=== PATIENT | male | born 1950 | race Caucasian/White ===

== ENCOUNTER 2023-06-15 11:31 | Outpatient (CLI) | payer MEDICARE, SELFPAY ==
--- NOTE | 2023-06-15 11:43 | CT_ITS ---
WS: [id number] CT NECK WITH CONTRAST HISTORY: Dysphagia, hoarseness TECHNIQUE: Contiguous 2 mm axial images are performed through the neck with intravenous contrast. Sag ittal and coronal reformats are also submitted. All CT scans at [facility] use at least one o f these dose optimization techniques: automated exposure control; mA and/or kV adjustment per patient size (includes targeted exams where dose is matched to clinical indication); or iterative reconstruc tion. CONTRAST: CONTRAST: Omnipaque 350; 100 mL IV. DLP: 227.99 mGy.cm COMPARISON: None available. Nasopharynx, oropharynx, hypopharynx and larynx are unremarkable. No soft tissue masses or abnormal e nhancement. Torus tubarius and fossa of Rosenmuller and parapharyngeal fat are normal. Small bilateral cervical chain lymph nodes. No adenopathy. Thyroid gland and salivary glands are normally enhancing with no masses. Advanced degenerative cervical spondylitic disease. Visualized portions of the skull base demonstrate no abnormalities. Orbits and globes are within norm al limits. No soft tissue masses. Visualized paranasal sinuses and mastoid air cells are normal. Duplicated LEFT SVC. Normal variant. There also may be a right-sided arch. Only a small portion of th e aortic arch is imaged on this exam. IMPRESSION: 1. No laryngeal mass identified. 2. No significant cervical chain lymphadenopathy. 3. Persistent LEFT SVC. Suspect there also may be a right-sided arch or variant abnormality at the g reat vessel level. Only a small portion of the aorta and pulmonary artery visualized on this exam. Fo r further evaluation CT angiogram of the chest can be obtained.
[2023-06-15 12:11] LABS: Blood Urea Nitrogen 21 mg/dL (8-23)
[2023-06-15] MEDS: iohexol 350 mg/mL 500 mL Btl (per mL) IV (12:24)
== END 2023-06-15 11:32 | disposition home or self-care (01) ==
LOC: RAD 11:33
PROVIDERS: Family Provider Family Medicine; PCP Family Medicine; Visit Provider Nurse Practitioner
DX: R13.10 Dysphagia, unspecified (principal); R49.0 Dysphonia; Q26.1 Persistent left superior vena cava
CPT/HCPCS: 70491; 82565; 84520; Q9967

== ENCOUNTER → 2023-10-11 10:31 | Outpatient (BNVA) | payer MEDICARE, SELFPAY | PROVIDERS: Family Provider Family Medicine; PCP Family Medicine; Visit Provider Family Medicine | DX: I10 Essential (primary) hypertension (principal); K04.7 Periapical abscess without sinus; Z12.5 Encounter for screening for malignant neoplasm of prostate; J04.0 Acute laryngitis; E55.9 Vitamin D deficiency, unspecified; K21.9 Gastro-esophageal reflux disease without esophagitis | CPT/HCPCS: 80053; 80061; 82306; 84439; 84443; 85025; 86140; G0103 ==

== ENCOUNTER → 2023-11-14 13:17 | Outpatient (BNVA) | payer MEDICARE, SELFPAY | PROVIDERS: Family Provider Family Medicine; PCP Family Medicine; Referring Provider Family Medicine; Visit Provider Surgery | DX: Z12.11 Encounter for screening for malignant neoplasm of colon (principal); R03.0 Elevated blood-pressure reading, without diagnosis of hypertension | CPT/HCPCS: 99203 ==

== ENCOUNTER 2023-11-28 10:17 | Outpatient (CLI) | payer MEDICARE, SELFPAY ==
--- NOTE | 2023-11-28 10:29 | CT_ITS ---
WS: [id number] CT chest w con* [id number] REASON FOR EXAM: ACUTE LARYNGITIS IV CONTRAST ADMINISTERED: 100 mL of Omnipaque 350@3 mL/s TOTAL EXAM DLP: 235.[address] scans at [facility] use at least one of these dose optimization techniques: automat ed exposure control; mA and/or kV adjustment per patient size (includes targeted exams where dose is matched to clinical indication); or iterative reconstruction. FINDINGS: No dextrocardia. Right-sided aortic arch from normally positioned left ventricle. The right-sided arch gives origin to the left carotid and innominate arteries and extends inferiorly into the left side of the mediastinu m. This portion of the aorta demonstrates a fusiform aneurysmal dilatation of 3.5 cm as it extends in feriorly in the mediastinum to a fixed narrowing with calcification which appears to represent a form of coarctation . The left subclavian artery originates from this portion of the dilated aorta and a lso demonstrates aneurysmal dilatation to 2 cm. The aorta extends posteriorly from coarctation with mild aneurysmal dilatation to 3.2 cm, before proceeding inferiorly as the descending thoracic aorta. 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 It courses around the left atrium to enter the right atrium. No lung nodule, lung mass, or mediastinal or hilar adenopathy is identified. No significant pleural a bnormality. Mild degenerative spondylosis in the thoracic spine. 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
[2023-11-28] MEDS: iohexol 350 mg/mL 500 mL Btl (per mL) IV (11:02)
== END 2023-11-28 10:18 | disposition home or self-care (01) ==
LOC: RAD 10:18
PROVIDERS: Family Provider Family Medicine; PCP Family Medicine; Visit Provider Specialist
DX: J04.0 Acute laryngitis (principal); I71.22 Aneurysm of the aortic arch, without rupture; Q26.1 Persistent left superior vena cava
CPT/HCPCS: 71260; Q9967

== ENCOUNTER 2023-12-27 06:47 | Outpatient (CLI) | payer MEDICARE, SELFPAY ==
--- NOTE | 2023-12-27 07:07 | MR_ITS ---
WS: [id number] MRI NECK WITH AND WITHOUT CONTRAST. COMPARISON: Neck CT 06/15/2023 Multiplanar, multisequence imaging is performed with contrast. MultiHance 11 mL IV. Patient moved and swallowed throughout the entire examination. No signal abnormality or mass is noted at the tongue base or through the larynx or epiglottis. This e valuation is insufficient to exclude a mass particularly in the region of the vocal cords. There is s ignificant motion. There is mild thickening of the vocal cords but I believe this is probably due to motion. Very slight greater thickening and enhancement of the RIGHT vocal cord. Parapharyngeal fat ap pears normal. No cervical chain adenopathy. Straightening of the normal cervical lordosis with disc and osteophyte disease encroaching upon the v entral thecal sac, most significant at C3-4 and C4-5. MR/MR orbit face neck wo/w* [id number] IMPRESSION: 1. This study is significantly compromised by motion throughout the entire exa mination. 2. Mild asymmetry enhancement of the RIGHT vocal cord. There is motion artifac t through this region and this all may be secondary to motion. Direct visualiza tion should be performed as a study is insufficient to exclude a mass. 3. No cervical chain adenopathy.
--- NOTE | 2023-12-27 07:07 | MR_ITS ---
WS: [id number] MRI BRAIN WITH AND WITHOUT CONTRAST HISTORY: acute laryngitis COMPARISON: None available. TECHNIQUE: Multiplanar imaging performed through the brain with MultiHance 11 ml's IV. Acute lacunar infarct in the LEFT centrum semiovale. Diffusion imaging is positive and there is low s ignal on the corresponding ADC map. No additional diffusion abnormality. No hemorrhage. There is othe rwise mild small vessel disease which is chronic in a periventricular distribution. No prior infarct. No hemorrhage. Ventricles and extra-axial spaces are normal. Clivus and pituitary gland are normal. Visualized posterior fossa and brainstem are also normal. Postcontrast images are negative for masses or vascular malformations. Dural venous sinuses are normal. Paranasal sinuses: Well aerated with no significant disease. Mastoid air cells: Normal. Calvarium and scalp: Normal. MR/MR head wo/w con [id number] IMPRESSION: 1. Acute LEFT centrum semiovale lacunar infarct. No hemorrhage. 2. Otherwise mild atrophy and small vessel ischemic disease is chronic. 3. No enhancing mass.
[2023-12-27] MEDS: gadobenate dimeglumine 20 mL vial IV (08:27)
== END 2023-12-27 06:48 | disposition home or self-care (01) ==
LOC: RAD 06:47
PROVIDERS: Family Provider Family Medicine; PCP Family Medicine; Visit Provider Specialist
DX: J04.0 Acute laryngitis (principal); I63.81 Other cerebral infarction due to occlusion or stenosis of small artery; I67.82 Cerebral ischemia
CPT/HCPCS: 70543; 70553; A9577

== ENCOUNTER 2024-02-14 06:29 | Day surgery (SDC) | payer MEDICARE, SELFPAY ==
--- NOTE | 2024-02-14 06:11 | W.PM.OPSFHP ---
Same Day Surgery H&P Indication for Procedure/HPI DATE OF PROCEDURE: February 14, 2024 CHIEF COMPLAINT/INDICATIONFOR SURGICAL PROCEDURE: need for screening colonoscopy PREOP DIAGNOSIS: need for screening colonoscopy PLANNED PROCEDURE: Operation Date: 02/14/24 08:20 Proposed Procedures p Colonoscopy - 40116 , G0121 , Z12.11(Not Applicable) - Joni Wells MD Medications/Allergies* Allergies/Adverse Reactions Allergy/AdvReac Type Severity Reaction Status Date / Time Penicillins Allergy ALGY-Hives Verified 02/11/24 09:40 Pertinent History/Comorbid Conditions* Family History (Updated 10/11/23 @ 09:42 by Samantha Tyler LPN) Father Diabetes Father Stroke Father Social History Smoking and tobacco/nicotine status: never used tobacco/nicotine Second hand smoke exposure: No Alcohol intake: never Substance/Drug Use: never Pertinent Exam Findings alert, oriented x 3 and clear to auscultation bilaterally Recommendations Surgery/Procedure today Coding Level of Care Code Acute Code for Chg Berta
[2024-02-14 06:44] VITALS: BMI 22.3
[2024-02-14 06:49] VITALS: BP 157/86; PULSE 74; RESP 16; TEMP 36.6; O2SAT 97
[2024-02-14] MEDS: sodium chloride 0.9% 1,000 ML 30 ML IV (06:54)
--- NOTE | 2024-02-14 07:24 | ANES.PREANE2 ---
Pre-Anesthetic Assessment Height/Weight: Height 5 ft 2 in Weight 122 lb Temp Pulse Resp BP Pulse Ox O2 Del Method 97.9 F 74 16 157/86 97 Room Air 02/14/24 06:49 02/14/24 06:49 02/14/24 06:49 02/14/24 06:49 02/14/24 06:49 02/14/24 06:49 Preop Diagnosis: need for screening colonoscopy Operation Date: 02/14/24 08:20 Proposed Procedures p Colonoscopy - 08085 , G0121 , Z12.11(Not Applicable) - Joni Wells MD Was Beta Tan taken within 24 hours: N/A Was Clonidine taken within 24 hours: N/A Last intake: Intake Last Liquid Date 02/13/24 Last Liquid Time 20:00 Last Solid Date 02/12/24 Last Solid Time 18:00 Social No alcohol and No tobacco Exam alert, oriented x 3, clear to auscultation bilaterally and regular rate & rhythm Airway Submandibular: within normal limits Cervical ROM: within normal limits Mallampati: Class II Dentition: other (Multiple missing teeth) Anesthetic Plan ASA status: 3 Anesthesia: MAC Other: No prior issues with anesthesia in the past Nothing to eat since yesterday Recently diagnosed hypertension on amlodipine and valsartan 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 Calvo of ENT. He states that it does cause him some shortness of breath with exertion but METs are greater than 4. No oxygen use. Plan for MAC anesthesia Medications/Allergies Home Medications Medication Instructions Recorded Confirmed Last Taken Type amlodipine 5 mg tablet 5 mg PO DAILY #90 tabs 01/10/24 02/12/24 02/12/24 Rx valsartan 320 mg tablet 320 mg PO DAILY #90 tabs 01/10/24 02/12/24 02/12/24 Rx Allergies Allergy/AdvReac Type Severity Reaction Status Date / Time Penicillins Allergy ALGY-Hives Verified 02/11/24 09:40 Current Medications Generic Name Dose Route Start Last Admin Trade Name Freq PRN Reason Stop Dose Admin Sodium Chloride 1,000 mls @ 30 mls/hr 02/14/24 06:45 02/14/24 06:54 Sodium Chloride 0.9% IV 30 mls/hr .Q24H SHONA Administration PFSH Anesthesia Family History Father Diabetes Stroke Social History Smoking and tobacco/nicotine status: never used tobacco/nicotine Second hand smoke exposure: No Alcohol intake: never Substance/Drug Use: never Data Anesthesia Cardiac Studies: No Data to Display
[2024-02-14 09:28] VITALS: BP 106/68; PULSE 64; RESP 20; TEMP 36.4; O2SAT 100
[2024-02-14 09:33] VITALS: BP 107/65; PULSE 64; RESP 20; O2SAT 99
[2024-02-14 09:43] VITALS: BP 117/72; PULSE 76; RESP 20; O2SAT 100
--- NOTE | 2024-02-14 10:02 | ANE.PACU2 ---
Inpatient post-anesthesia follow up: Airway intact: Yes Vital signs: Temperature 97.5 F Pulse Rate 76 Respiratory Rate 20 Blood Pressure 117/72 Pulse Oximetry 100 Oxygen Delivery Me thod Room Air Oxygen Flow Rate Fraction of Inspir ed Oxygen Hydration adequate: Yes Nausea and vomiting: No Pain level: 1 Mental status: Baseline
[2024-02-20 07:06] LABS: Mismatch Repari Proteins-IHC See Report
== END 2024-02-14 10:02 | disposition home or self-care (01) ==
PROVIDERS: PCP Family Medicine; Visit Provider Surgery
PROC: 0DJD8ZZ Inspection of Lower Intestinal Tract, Via Natural or Artificial Opening Endoscopic (ICD-10-PCS; CPT 45378; principal; 2024-02-14 08:20)
DX: Z12.11 Encounter for screening for malignant neoplasm of colon (principal); C18.7 Malignant neoplasm of sigmoid colon; D12.3 Benign neoplasm of transverse colon; K63.5 Polyp of colon; I10 Essential (primary) hypertension; K62.89 Other specified diseases of anus and rectum; Z88.0 Allergy status to penicillin; Z79.899 Other long term (current) drug therapy
CPT/HCPCS: 45380; 45381; 45385; 88305; 88341; 88342; J2704; J7030

== ENCOUNTER 2024-02-20 06:00 | Outpatient (CLI) | payer MEDICARE, SELFPAY | END 2024-02-20 17:00 | disposition home or self-care (01) | LOC: RAD 03-05 13:06 | PROVIDERS: PCP Family Medicine; Visit Provider Surgery | DX: C18.9 Malignant neoplasm of colon, unspecified (principal) | CPT/HCPCS: 99214 ==

== ENCOUNTER → 2024-02-25 09:54 | Outpatient (BNVA) | payer MEDICARE, SELFPAY | PROVIDERS: PCP Family Medicine; Visit Provider Family Medicine | DX: C18.9 Malignant neoplasm of colon, unspecified (principal) | CPT/HCPCS: 80048; 82378; 85025 ==

== ENCOUNTER 2024-02-27 10:49 | Outpatient (CLI) | payer MEDICARE, SELFPAY ==
--- NOTE | 2024-02-27 12:00 | CTR_ITS ---
PROCEDURE INFORMATION: Exam: CT Chest Without and With Contrast; Diagnostic Exam date and time: 02/27/2024 12:25 PM Age: 73 years old Clinical indication: Condition or disease; Cancer and other: Malignant neoplasm of colon; Additional info: Colon cancer TECHNIQUE: Imaging protocol: Diagnostic computed tomography of the chest without and with contrast. Radiation optimization: All CT scans at this facility use at least one of these dose optimization techniques: automated exposure control; mA and/or kV adjustment per patient size (includes targeted exams where dose is matched to clinical indication); or iterative reconstruction. Contrast material: OMNI 350; Contrast volume: 100 ml; Contrast route: INTRAVENOUS (IV); COMPARISON: CT chest w con* [id number] 11/28/2023 10:54 AM RADIATION DOSE METRICS: Total DLP (mGy-cm): 670.41 FINDINGS: Lungs: The previously described cluster of tiny nodules in the posterior portion of the right upper lobe has resolved, suggestive of prior infectious/inflammatory etiology. Unchanged 6 x 6 mm solitary ground-glass focus in the superior portion of the right lower lobe. The lungs are otherwise clear. Pleural spaces: No pneumothorax or pleural effusion. Heart: Heart size upper limits of normal. No pericardial fluid. Moderate coronary vessel atherosclerosis, with possible stenting. Lymph nodes: No mediastinal or hilar lymphadenopathy. Vasculature: No large or central pulmonary embolus. Right-sided aortic arch gives rise to the right brachiocephalic and left carotid artery. Aneurysmal dilatation of the aortic arch, measuring up to 3.6 cm in diameter, with adjacent segments measuring up to 1.9 cm proximally and distally. Unchanged finding. Immediately distal to this region of aneurysmal dilatation, there is apparent moderate coarctation at the origin of the descending aorta. 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 Bones/joints: Unremarkable. No acute fracture. Soft tissues: Unremarkable. PROCEDURE INFORMATION: Exam: CT Abdomen And Pelvis Without And With Contrast Exam date and time: 02/27/2024 12:25 PM Age: 73 years old Clinical indication: Condition or disease; Cancer and other: Malignant neoplasm of colon; Additional info: Colon cancer TECHNIQUE: Imaging protocol: Computed tomography of the abdomen and pelvis without and with contrast. Radiation optimization: All CT scans at this facility use at least one of these dose optimization techniques: automated exposure control; mA and/or kV adjustment per patient size (includes targeted exams where dose is matched to clinical indication); or iterative reconstruction. Contrast material: OMNI 350; Contrast volume: 100 ml; Contrast route: INTRAVENOUS (IV); COMPARISON: CT chest w con* [id number] 11/28/2023 10:54 AM RADIATION DOSE METRICS: Total DLP (mGy-cm): 670.41 FINDINGS: Lungs: Lung bases are clear as visualized. Diaphragm: Small hiatal hernia. Liver: Normal. No mass. Gallbladder and biliary ducts: Normal. No calcified stones. No ductal dilation. Pancreas: Normal. No ductal dilation. Spleen: Normal. No splenomegaly. Adrenal glands: Normal. No mass. Kidneys and ureters: Normal. No hydronephrosis. Stomach and bowel: No bowel mass or obstruction. Note made of moderate thickening of a short segment of the sigmoid colon (approximately 8 cm in length). Nonspecific finding. May indicate infectious, inflammatory, or posttreatment thickening versus under distension. Administered enteric contrast transits up to the rectum. Moderate colonic diverticulosis. Appendix: No evidence of appendicitis. Intraperitoneal space: No distinct peritoneal metastatic disease. No ascites, pneumoperitoneum, or abscess. Vasculature: Unremarkable. No abdominal aortic aneurysm. Lymph nodes: Unremarkable. No enlarged lymph nodes. Urinary bladder: Mild circumferential thickening of the bladder, probably due to a component of chronic outlet obstruction. Reproductive: Prostatomegaly. Bones/joints: Mild heterogeneity in the upper lumbar vertebrae. Distinct worrisome lytic or blastic osseous lesion. Soft tissues: Small bowel containing left inguinal hernia. CT/CT abdpel wo/w [id number] IMPRESSION: 1. The previously described cluster of tiny nodules in the posterior portion of the right upper lobe has resolved, suggestive of prior infectious/inflammatory etiology. 2. Congenital abnormal thoracic aorta with right-sided arch and aneurysmal dilatation of the central arch, unchanged. 3. Unchanged 6 x 6 mm solitary ground-glass focus in the superior portion of the right lower lobe. May be infectious or inflammatory. However, given history of malignancy, may also represent metastatic disease. Attention to be paid on future. IMPRESSION: No bowel mass or obstruction. Note made of moderate thickening of a short segment of the sigmoid colon (approximately 8 cm in length). Nonspecific finding. May indicate infectious, inflammatory, or posttreatment thickening versus underdistension.
[2024-02-27] MEDS: iohexol 350 mg/mL 500 mL Btl (per mL) IV (12:51)
[2024-02-27] MEDS: iohexol 350 mg/mL 500 mL Btl (per mL) PO (12:53)
== END 2024-02-27 10:50 | disposition home or self-care (01) ==
LOC: RAD 10:50
PROVIDERS: PCP Family Medicine; Visit Provider Surgery
DX: C18.9 Malignant neoplasm of colon, unspecified (principal)
CPT/HCPCS: 71260; 74178

== ENCOUNTER → 2024-03-19 11:21 | Outpatient (BNVA) | payer MEDICARE, SELFPAY | PROVIDERS: PCP Family Medicine; Visit Provider Surgery | DX: Z12.11 Encounter for screening for malignant neoplasm of colon (principal) | CPT/HCPCS: 99024; 99214 ==

== ENCOUNTER 2024-04-30 13:02 | Oncology outpatient (recurring) (ONCR) | payer MEDICARE, SELFPAY | END 2024-05-27 23:59 | disposition home or self-care (01) | PROVIDERS: PCP Family Medicine; Visit Provider Internal Medicine Medical Oncology | DX: C18.7 Malignant neoplasm of sigmoid colon (principal); R91.1 Solitary pulmonary nodule | CPT/HCPCS: 99204 ==

== ENCOUNTER → 2024-11-13 08:40 | Outpatient (BNVA) | payer MEDICARE, SELFPAY | PROVIDERS: PCP Family Medicine; Visit Provider Family Medicine | DX: I10 Essential (primary) hypertension (principal); Z12.5 Encounter for screening for malignant neoplasm of prostate; Z12.11 Encounter for screening for malignant neoplasm of colon; U07.1 COVID-19 | CPT/HCPCS: 80053; 80061; 84443; 85027; G0103 ==

== ENCOUNTER → 2025-05-05 12:25 | Outpatient (BNVA) | payer MEDICARE, SELFPAY | PROVIDERS: PCP Family Medicine; Visit Provider Surgery | DX: Z12.11 Encounter for screening for malignant neoplasm of colon (principal) | CPT/HCPCS: 99024; 99214 ==

== ENCOUNTER 2025-05-06 16:15 | Oncology outpatient (recurring) (ONCR) | payer MEDICARE, SELFPAY ==
[2025-04-29 12:54] LABS: Hematocrit 40.9 % (37-53); Hemoglobin 14.20 g/dL (11.27-16.99); Mean Corpuscular HGB Conc 34.7 g/dL (30-55); Mean Corpuscular Hemoglobin 30.5 pg (27-33); Mean Corpuscular Volume 88.0 fl (82-101); Nucleated Red Blood Cells % 0 %; Platelet Count 215 10^3/cmm (157-399); Red Blood Count 4.65 10^6/uL (3.85-5.65); White Blood Count 9.01 10^3/uL (3.29-11.43)
[2025-04-29 13:19] LABS: Alanine Aminotransferase 20 U/L (0-41); Albumin Level 4.3 g/dL (3.5-5.2); Alkaline Phosphatase 67 U/L (40-130); Anion Gap 15.3 (5-19); Aspartate Amino Transferase 29 U/L (0-40); Blood Urea Nitrogen 18 mg/dL (8-23); Calcium 9.4 mg/dL (8.5-10.5); Carbon Dioxide 27 mmol/L (22-29); Chloride 103 mmol/L (98-107); Globulin 3.3 g/dL (1.3-4.6); Glucose 97 mg/dL (65-115); Osmolality Calculated 294 mOsm/kg (285-295); Potassium 4.3 mmol/L (3.5-5.1); Sodium 141 mmol/L (136-145); Total Protein 7.6 g/dL (6.6-8.7)
[2025-04-29 15:12] LABS: Carcinoembryonic Antigen 5.6 ng/mL (0.0-4.7)
[2025-05-06] MEDS: iohexol 350 mg/mL 500 mL Btl (per mL) PO (14:41)
[2025-05-06] MEDS: iohexol 350 mg/mL 500 mL Btl (per mL) IV (15:20)
--- NOTE | 2025-05-06 16:15 | CTR_ITS ---
PROCEDURE INFORMATION: Exam: CT Chest With Contrast; Diagnostic Exam date and time: 05/06/2025 3:12 PM Age: 75 years old Clinical indication: Condition or disease; Other: Colon cancer; Prior surgery; Surgery date: 6+ months; Surgery type: Colon, appy; Additional info: Surveillance TECHNIQUE: Imaging protocol: Diagnostic computed tomography of the chest with contrast. Radiation optimization: All CT scans at this facility use at least one of these dose optimization techniques: automated exposure control; mA and/or kV adjustment per patient size (includes targeted exams where dose is matched to clinical indication); or iterative reconstruction. Contrast material: OMNI 350; Contrast volume: 100 ml; Contrast route: INTRAVENOUS (IV); COMPARISON: CT abdpel wo/w [id number] 02/27/2024 12:25 PM RADIATION DOSE METRICS: Total DLP (mGy-cm): 485.33 FINDINGS: Lungs: A small calcified granuloma in the right lower lobe. In the area of previously seen ground-glass opacity superior segment right lower lobe is increased ground-glass density paralleling the pleura. This may represent some peripheral dependent atelectasis. Inflammatory process can not be entirely excluded. Unlikely neoplastic. Some mild linear atelectasis seen posterior gutters of both lungs. Pleural spaces: Unremarkable. No pneumothorax. No pleural effusion. Heart: Heart size upper limits. Coronary artery calcification. Lymph nodes: Stable small mediastinal lymph nodes. Vasculature: Aneurysmal dilatation of the distal aortic arch again seen measuring proximally 3.9 cm in diameter. At the distal end of the this is a focal area of the coarctation. Normal diameter of the ascending thoracic aorta and proximal aortic arch and descending thoracic aorta. Again seen is transposition of the left brachiocephalic vein draining into the right atrium. Main pulmonary artery normal diameter. No demonstrable pulmonary emboli. Bones/joints: Degenerative changes and Schmorl's nodes deformities. No acute fracture. Soft tissues: Unremarkable. PROCEDURE INFORMATION: Exam: CT Abdomen And Pelvis With Contrast Exam date and time: 05/06/2025 3:12 PM Age: 75 years old Clinical indication: Condition or disease; Other: Colon cancer; Prior surgery; Surgery date: 6+ months; Surgery type: Colon, appy; Additional info: Surveillance TECHNIQUE: Imaging protocol: Computed tomography of the abdomen and pelvis with contrast. Radiation optimization: All CT scans at this facility use at least one of these dose optimization techniques: automated exposure control; mA and/or kV adjustment per patient size (includes targeted exams where dose is matched to clinical indication); or iterative reconstruction. Contrast material: OMNI 350; Contrast volume: 100 ml; Contrast route: INTRAVENOUS (IV); COMPARISON: CT ch [place] wo/w [id number] 02/27/2024 12:25 PM RADIATION DOSE METRICS: Total DLP (mGy-cm): 485.33 FINDINGS: Liver: Round 6.8 mm hypodense lesion medial lower right lobe liver slice image 24 series 5. On previous study of 02/27/2024 this showed a area of the increased enhancement. On study of 07/2023 this showed decreased density and some enhancement. It appears smaller than on 11/28/2023. This would indicate lesion probably benign. Gallbladder and biliary ducts: Normal. No calcified stones. No ductal dilation. Pancreas: Normal. No ductal dilation. Spleen: Normal. No splenomegaly. Adrenal glands: Normal. No mass. Kidneys and ureters: Kidneys unremarkable. Extrarenal pelvis on the right. Slightly more marked dilatation of the left renal pelvis and left ureter to the level of the urinary bladder to the right. Appears to be wall thickening urinary bladder which may cause this. Stomach and bowel: Moderate-sized hiatal hernia again seen. Homogeneous circumferential wall thickening of the antrum measuring up to 8.7 mm convexities. No evidence of significant obstruction. No enhancement. Diverticulum 2nd portion of the duodenal. Small bowel otherwise unremarkable. Large amount of fecal material in the cecum, ascending colon, transverse colon and descending colon. Previous partial resection of the sigmoid colon. Mild decrease in caliber with respect to the colon proximal and distal to this point but no significant narrowing or obstruction. Appendix: No evidence of appendicitis. Intraperitoneal space: Unremarkable. No free air. No significant fluid collection. Vasculature: Mild atherosclerosis. No abdominal aortic aneurysm. Lymph nodes: Unremarkable. No enlarged lymph nodes. Urinary bladder: Borderline-mild wall thickening of the lateral and anterior higgins of the urinary bladder measuring up to 4.8 mm. Appearance of the thickening of the posterior wall. There is also moderate prostatic with some lobulation projecting into the urinary bladder. Nonemergent urology consult recommended, especially in view of the mild dilatation of the left ureter. Reproductive: Moderate enlargement of the prostate projecting into urinary bladder. Bones/joints: Degenerative bony and disc changes. Schmorl's nodes deformities. Soft tissues: Left inguinal hernia containing a loop of small bowel without obstruction. CT/CT chest abdpel w/*[id number] IMPRESSION: 1. Ground glass opacity posterior superior segment right lower lobe appears associated with faint ground-glass opacity paralleling the posterior pleural surface. This may represent some dependent peripheral atelectasis. Can not rule out inflammatory process. Unlikely malignancy. However six-month follow-up CT recommended. 2. Heart size upper limits. Coronary artery calcification. 3. Stable aneurysmal dilatation distal aortic arch with focal area of the coarctation. Again seen transposition left brachiocephalic artery inserting into the right atrium. IMPRESSION: 1. Round 6 8 mm hypodense lesion medial right lower lobe of the liver. Previous studies that showed enhancement and with slightly larger. Decrease in size would indicate probable benign lesion. 2. Mild dilatation of the left ureter to the left UV junction. Wall thickening of the urinary bladder may account for this. Also moderate enlargement of the prostate projecting into the urinary bladder. Follow-up urology consult on a nonemergent basis recommended. 3. Moderate-sized hiatal hernia again seen. 4. Symmetric homogeneous mild wall thickening of the antrum of the stomach without significant obstruction . Wall thickness of the antrum can be variable thickness. Clinical correlation suggested. If clinically indicated endoscopy recommended. 5. Previous partial resection of sigmoid colon. Anastomosis appears unremarkable. 6. Large amount of fecal material in the cecum, ascending, transverse, and descending colon without obstruction. Correlate for symptoms of constipation. 7. Left inguinal hernia containing loop of small bowel without obstruction.
== END 2025-05-27 23:59 | disposition home or self-care (01) ==
LOC: RAD 05-07 00:01 → ONCMED 05-07 09:58
PROVIDERS: Internal Medicine Medical Oncology; PCP Family Medicine; Visit Provider Internal Medicine
DX: C18.7 Malignant neoplasm of sigmoid colon; K76.89 Other specified diseases of liver; N28.82 Megaloureter; N40.0 Benign prostatic hyperplasia without lower urinary tract symptoms; K44.9 Diaphragmatic hernia without obstruction or gangrene; R93.3 Abnormal findings on diagnostic imaging of other parts of digestive tract; Z98.890 Other specified postprocedural states; R93.89 Abnormal findings on diagnostic imaging of other specified body structures; K40.90 Unilateral inguinal hernia, without obstruction or gangrene, not specified as recurrent; J84.10 Pulmonary fibrosis, unspecified; R91.8 Other nonspecific abnormal finding of lung field; J98.11 Atelectasis; I25.10 Atherosclerotic heart disease of native coronary artery without angina pectoris; R59.0 Localized enlarged lymph nodes; I77.810 Thoracic aortic ectasia; R93.7 Abnormal findings on diagnostic imaging of other parts of musculoskeletal system; N28.89 Other specified disorders of kidney and ureter; K57.10 Diverticulosis of small intestine without perforation or abscess without bleeding; I70.0 Atherosclerosis of aorta; Z53.9 Procedure and treatment not carried out, unspecified reason
CPT/HCPCS: 36415; 71260; 74177; 80053; 82378; 85025; 99214

== ENCOUNTER 2025-05-27 08:11 | Day surgery (SDC) | payer MEDICARE, SELFPAY ==
--- NOTE | 2025-05-25 08:58 | PC.NURSE ---
This RN attempted to do TPO, no answer, left vm to call back at earliest convenience.
[2025-05-27 08:26] VITALS: BP 161/100; PULSE 77; RESP 18; TEMP 36.5; O2SAT 99; BMI 22.1
--- NOTE | 2025-05-27 10:07 | W.PM.OPSUD ---
Surgery/Procedure H&P Update DATE OF PROCEDURE: May 27, 2025 DATE H&P PERFORMED: 05/05/25 H&P UPDATE INFORMATION: I have reviewed H&P completed within last 30 days, I have examined patient prior to procedure, No changes to prior documentation, H&P is in [facility] EMR on date indicated and Risks and benefits of the procedure reviewed PLANNED PROCEDURE: Operation Date: 05/27/25 11:05 Proposed Procedures p Colonoscopy 40286 G0121 Z12.11(Not Applicable) - Joni Wells MD
--- NOTE | 2025-05-27 10:13 | ANES.PREANE2 ---
Pre-Anesthetic Assessment Height/Weight: Height 1.6 m Weight 56.699 kg Temp Pulse Resp BP Pulse Ox O2 Del Method 97.7 F 77 18 161/100 99 Room Air 05/27/25 08:26 05/27/25 08:26 05/27/25 08:26 05/27/25 08:26 05/27/25 08:26 05/27/25 08:26 Operation Date: 05/27/25 11:05 Proposed Procedures p Colonoscopy [id number] Z12.11(Not Applicable) - Joni Wells MD Familial anesthetic complications: none Was Beta Tna taken within 24 hours: N/A Was Clonidine taken within 24 hours: N/A Last intake: Intake Last Liquid Date 05/26/25 Last Liquid Time 22:30 Last Solid Date 05/25/25 Last Solid Time 20:00 Social No alcohol and No tobacco Exam alert and oriented x 3 Airway Submandibular: within normal limits Cervical ROM: within normal limits Mallampati: Class I Dentition: chipped (poor dentition) History/ROS No significant history except as noted Pulmonary paralyzed vocal cord, food sometimes gets stuck a little. lung nodules on CT per chart CV/HEM None reported sigmoidectomy at [facility] 2023 Hepatic None reported GI Gastroesophageal Reflux Disease (controlled) Metabolic None reported Musc/skel None reported Neuropsych None reported Anesthetic Plan ASA status: 3 Anesthesia: Anesthesia Evaluation and MAC Risk of > 500 ml blood loss (7ml/kg in children): No Medications/Allergies Home Medications ?Medication ?Instructions ?Recorded ?Confirmed ?Last Taken ?Type latanoprost 0.005 % eye drops 1 drp ophthalmic (eye) BEDTIME 04/30/24 05/27/25 05/26/25 History albuterol sulfate 90 mcg/actuation 1 inh inhalation QID PRN shortness 08/06/24 05/27/25 05/26/25 Rx aerosol inhaler of breath or wheezing #8.5 grams cholecalciferol (vitamin D3) 10 10 mcg PO DAILY 08/13/24 05/27/25 05/26/25 History mcg (400 unit) capsule sucralfate 1 gram tablet (Carafate) 1 g PO BID #90 tabs 05/13/25 05/27/25 05/26/25 Rx amlodipine 5 mg tablet 5 mg PO DAILY 05/25/25 05/27/25 05/27/25 History pantoprazole 40 mg tablet,delayed 40 mg PO DAILY 05/25/25 05/27/25 05/26/25 History release valsartan 320 mg tablet 320 mg PO DAILY 05/25/25 05/27/25 05/26/25 History Allergies Allergy/AdvReac Type Severity Reaction Status Date / Time Penicillins Allergy ALGY-Hives Verified 05/05/25 12:53 Current Medications Generic Name Dose Route Start Last Admin Trade Name Freq PRN Reason Stop Dose Admin Sodium Chloride 1,000 mls @ 15 mls/hr 05/27/25 08:19 05/27/25 08:38 Sodium Chloride 0.9% IV 05/28/25 08:18 15 mls/hr .Q24H PRN Administration COLONOSCOPY FLUIDS PFSH Anesthesia Family History Father Diabetes Stroke Social History Smoking and tobacco/nicotine status: never used tobacco/nicotine Second hand smoke exposure: No Alcohol intake: never Substance/Drug Use: never
[2025-05-27 11:21] VITALS: BP 120/74; PULSE 65; RESP 18; TEMP 36.7; O2SAT 97
[2025-05-27 11:40] VITALS: BP 141/88; PULSE 70; RESP 17; O2SAT 99
--- NOTE | 2025-05-27 11:50 | ANE.PACU2 ---
Inpatient post-anesthesia follow up: Airway intact: Yes Vital signs: Temperature 98.0 F Pulse Rate 70 Respiratory Rate 17 Blood Pressure 141/88 Pulse Oximetry 99 Oxygen Delivery Me thod Room Air Oxygen Flow Rate Fraction of Inspir ed Oxygen Hydration adequate: Yes Nausea and vomiting: No Pain level: 1 Mental status: Baseline
== END 2025-05-27 11:52 | disposition home or self-care (01) ==
PROVIDERS: PCP Family Medicine; Visit Provider Surgery
PROC: 0DJD8ZZ Inspection of Lower Intestinal Tract, Via Natural or Artificial Opening Endoscopic (ICD-10-PCS; CPT 45378; principal; 2025-05-27 11:05)
DX: Z12.11 Encounter for screening for malignant neoplasm of colon (principal); K21.9 Gastro-esophageal reflux disease without esophagitis
CPT/HCPCS: G0121; J2704; J7030